=== PATIENT | female | born 1950 | race Caucasian/White ===

== ENCOUNTER → 2016-06-29 | Outpatient (CLI) | payer OTHER ==
[~2016-06-29] MED LIST: CYCL0.05; CYCL5TAB PO; OPTIRAY 320 IV PRN; PRM/45; PROP10TA7
--- NOTE | 2016-06-29 12:33 | DIAGNOSTIC IMAGING REPORT ---
CT SCAN OF THE ABDOMEN AND PELVIS WITH IV CONTRAST CLINICAL HISTORY: Right lower quadrant abdominal pain. Hematochezia. COMPARISON STUDY: No priors. TECHNIQUE: Following the IV administration of 119 cc of Optiray 320, CT scan of the abdomen and pelvis is performed from the lung bases to the proximal femora. Images are reviewed in the axial, sagittal, and coronal planes. IV contrast was administered without complication. Automated dose control exposure was utilized. CT DOSE: 797.96 mGycm FINDINGS: Lung bases: The heart is normal in size and without pericardial effusion. The lung bases are clear. Liver: The contrast-enhanced liver is normal in size and contour. The liver demonstrates diffusely diminished attenuation consistent with hepatic steatosis. Mild fatty sparing is seen adjacent to the gallbladder fossa. There is no intrahepatic biliary ductal dilatation. The hepatic veins and portal veins are patent. Gallbladder: Unremarkable. Spleen: Normal in size and attenuation. Pancreas: Unremarkable. Adrenal glands: Unremarkable. Kidneys: The contrast enhanced kidneys are normal in size and without hydronephrosis. The kidneys enhance symmetrically. Scattered subcentimeter cortical hypodensities likely represent cysts but are too small for definitive characterization. Abdominal vasculature: The abdominal aorta is normal in course and caliber noting mild atherosclerotic calcification. Bowel: The small bowel and colon are normal in course and caliber. There is moderate sigmoid diverticulosis. There is wall thickening with perisigmoidal inflammation and trace fluid consistent with acute sigmoid diverticulitis. There is no evidence of diverticular abscess. The appendix is well-visualized and normal. Peritoneum: There is no intraperitoneal free air or abdominal ascites. Lymphadenopathy: None. Pelvic viscera: Although decompressed, the bladder wall appears thickened. The uterus is surgically absent. No adnexal lesion is seen. The distal right gonadal vein appears thrombosed. Numerous calcified phleboliths are observed in the pelvis. Skeletal structures: The skeletal structures are osteopenic. There is mild lumbosacral spondylosis. No lytic or blastic lesions are seen. IMPRESSION: 1. Findings are consistent with acute sigmoid diverticulitis. No intraperitoneal free air is identified and there is no evidence of diverticular abscess. 2. Although decompressed, the bladder wall appears thickened. Correlation with clinical findings and urinalysis will be required. 3. 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 4. Additional findings as above. Electronically signed by: Stefan Melo M.D. 06/29/2016 12:31 PM Dictated Date/Time: 06/29/2016 12:26 PM
== END | disposition home or self-care (01) ==
LOC: C.CTS 10:03
PROVIDERS: ATTEND Nurse Practitioner
DX: R10.30 Lower abdominal pain, unspecified (principal); K92.1 Melena; I82.890 Acute embolism and thrombosis of other specified veins

== ENCOUNTER 2016-09-25 14:01 | Emergency (ER) | payer OTHER ==
[~2016-09-25] VITALS: Ht 162.6 cm; Wt 81.1 kg
[~2016-09-25 14:01] MED LIST changes: -CYCL5TAB PO; -OPTIRAY 320 IV PRN
[2016-09-25 14:07] VITALS: Ht 162.6 cm; Wt 81.1 kg
[2016-09-25 16:02] LABS: URINE APPEARANCE CLEAR (CLEAR); URINE BILIRUBIN NEG (NEG); URINE COLOR YELLOW; URINE EPITHELIAL CELL AUTO >30 /lpf (0-5); URINE NITRITE NEG (NEG); URINE PH 5.5 (4.5-7.5); URINE SPECIFIC GRAVITY 1.018 (1.000-1.030); UROBILINOGEN NEG (NEG)
[2016-09-25 16:03] LABS: MANUAL MICROSCOPIC REQUIRED? NO; REVIEW REQ? NO
--- NOTE | 2016-09-25 16:32 | EMERGENCY ROOM VISIT NOTE ---
ED Visit Note First contact with patient: 15:28 CHIEF COMPLAINT: Low back pain HISTORY OF PRESENT ILLNESS: This 66-year-old female patient presents to the emergency department, ambulatory, complaining of pain in the low back/pelvis which began approximately 2 hours prior to arrival. The patient states she was walking around outside, and watching the solar clips on her iPad. The patient states she fell onto the edge of a wooden step, landing on her left lower back. The patient called her PCP and spoke with a nurse, who advised her to come to the emergency Department in case of kidney injury. The patient has not taken anything for pain. The pain is worse with movement. The patient notes the pain as sharp and a 6/10. The patient denies any loss of control of their bowel or bladder functions. There has been no leg numbness or weakness, and no change in sensation. No nausea or vomiting or abdominal pain. No chest pain or shortness of breath. The patient has not had prior back injuries. No dysuria or increased urinary frequency. REVIEW OF SYSTEMS: A 10 system review of systems was performed with positives and pertinent negatives listed in the history of present illness. All other systems were reviewed and are negative. ALLERGIES: Prednisone, latex, ibuprofen, penicillin, Xylocaine, tetracycline MEDICATIONS: Losartan PMH: Hypertension SOCIAL HISTORY: The patient lives locally with family. She denies drug, alcohol , tobacco use. PHYSICAL EXAM: VITALS: Vitals are noted on the nurse's note and reviewed by myself. Vital signs stable. GENERAL: This is a 66-year-old female, in no acute distress, nondiaphoretic, well-developed well-nourished. SKIN: The skin was without rashes, erythema, edema, or bruising. Capillary refill less than 2 seconds. NECK: Supple without nuchal rigidity. No cervical spine tenderness. No paraspinous muscle tenderness. HEART: Regular rate and rhythm without murmurs gallops or rubs. LUNGS: Clear to auscultation bilaterally without wheezes, rales or rhonchi. ABDOMEN: Positive bowel sounds x 4. Normal tympanic percussion. Soft, nontender, without masses or organomegaly. Lopez sign negative. MUSCULOSKELETAL: There is tenderness over the left pelvis, overlying the PSIS. No muscle atrophy, erythema, or edema noted of the back. There is no tenderness over the lumbar spinous processes. There is no tenderness over the paraspinous muscles utterlyn. There is no tenderness over the thoracic spine or paraspinous muscles. There are no muscle spasms present. The patient is slow to move around with maximum tenderness with changing positions from sitting to lying down. THROAT: No sore throat, difficulty swallowing, or hoarseness. straight leg raise test. NEURO: Patient was alert and oriented to person place and time. Normal sensation to light and sharp touch. Deep tendon reflexes 2+ in the lower extremities. Dorsalis pedis pulse 2+ bilaterally. Strength 5/5 and equal in the bilateral lower extremities. RADIOLOGY: X-ray pelvis: FINDINGS: There is no fracture or dislocation. Soft tissues are unremarkable. No radiopaque foreign bodies. IMPRESSION: No fracture or dislocation within the pelvis or hips. EMERGENCY DEPARTMENT COURSE: She was seen and evaluated as above. A urinalysis was ordered, and did show mild occult blood. There was no gross blood in the urine. The urinalysis did appear to be contaminated. An x-ray of the pelvis was performed and negative for acute fracture or deformity. I discussed all findings with the patient. She was given a dose of Toradol 60 mg IM. The patient did report mild improvement in her symptoms. I offered pain medication , and the patient declines. The patient was discharged home in good condition. DIFFERENTIAL DIAGNOSIS: Pelvic fracture, contusion, lumbar strain, lumbar fracture, and others DIAGNOSIS: Contusion of the pelvis DISCHARGE INSTRUCTIONS AND TREATMENT: You have been treated in the Emergency Department for Back Pain. You have been prescribed Flexeril (cyclobenzaprine) 1-2 tabs orally, three times per day. Do NOT exceed 30 mg (6 tabs) per day. Take your first dose at bedtime as it can make you drowsy. Always take all medications as prescribed. For pain control, you can use the following [id number] medicines (if >12 yo): Naproxen (Alevel) may be used for fever or pain. Use 220-440mg every 8-12 hours as needed. Take with food. Avoid using more than 1000mg in a 24 hour period. Do not use 1000mg per day for more than three consecutive days without physician direction. Prolonged inappropriate use can lead to stomach upset or ulcers. (AND/OR) Acetaminophen(Tylenol) may be used for fever or pain. Use 1000mg every six hours as needed. Avoid using more than 3000mg in a 24 hour period. If this is an acute injury, ice can be applied to the area of pain for the first 3 days to help decrease pain and inflammation. After the first 3 days, a heating pad can be used over the area for continued soothing relief. You should schedule a follow-up appointment in 2-3 days with your Primary Care Provider for further evaluation and treatment of your back pain. You should have a repeat urinalysis completed regarding very small amounts of blood noted in your urine in the emergency department. This urinalysis should be to rule out ongoing bleeding. Return to the Emergency Department if your current symptoms worsen despite treatment course outlined above, or if you develop any of the following symptoms : intractable pain despite aforementioned treatment course, loss of control of your bowel or bladder, numbness or tingling in your groin, or development of a fever. Current/Historical Medications Scheduled Cyclobenzaprine Hcl (Flexeril), 1-2 TABS PO TID Miscellaneous Medications Cyclosporine Oph 0.05% (Restasis Oph 0.05%) Estrogens, Conjugated (Premarin) Propranolol (Inderal) Allergies Coded Allergies: Latex (Unverified Allergy, Mild, 03/12/09) Prednisone (Unverified Allergy, Mild, 03/12/09) Uncoded Allergies: TERACYCLINE (Allergy, Mild, 08/27/05) 1 (Allergy, Unknown, 03/20/02) IBUPROFEN PCN XYLOCAINE ?OTHERS (Allergy, Unknown, 03/20/02) Vital Signs Date Time Temp Pulse Resp B/P (MAP) Pulse Ox O2 Delivery O2 Flow Rate FiO2 09/25/16 17:15 36.6 71 18 151/88 95 09/25/16 17:10 71 18 151/88 95 Room Air 09/25/16 14:07 36.6 74 18 170/90 95 Room Air Laboratory Results Test 09/25/16 15:35 Urine Color YELLOW Urine Appearance CLEAR (CLEAR) Urine pH 5.5 (4.5-7.5) Urine Specific Widener 1.018 (1.000-1.030) Urine Protein NEG (NEG) Urine Glucose (UA) NEG (NEG) Urine Ketones NEG (NEG) Urine Occult Blood 1+ (NEG) Urine Nitrite NEG (NEG) Urine Bilirubin NEG (NEG) Urine Urobilinogen NEG (NEG) Urine Leukocyte Esterase LARGE (NEG) Urine WBC (Auto) 10-30 /hpf (0-5) Urine RBC (Auto) 0-4 /hpf (0-4) Urine Hyaline Casts (Auto) 1-5 /lpf (0-5) Urine Epithelial Cells (Auto) >30 /lpf (0-5) Urine Bacteria (Auto) NEG (NEG) Medications Administered Medications (Trade) Dose Ordered Sig/Buddy Route Start Time Stop Time Status Last Admin Dose Admin Ketorolac Tromethamine (Toradol Inj) 60 mg NOW STAT IM 09/25/16 16:50 09/25/16 16:52 DC 09/25/16 17:05 60 MG Departure Information Impression Primary Impression: Pelvic contusion Dispostion Home / Self-Care Condition GOOD Prescriptions Cyclobenzaprine Hcl (FLEXERIL) 5 Mg Tab 1-2 TABS PO TID, #20 TAB PRN Prov: Madeline Avila PA-C 09/25/16 Referrals Aida Dale DO (PCP) Patient Instructions ED Contusion Back, [facility] Additional Instructions You have been treated in the Emergency Department for Back Pain. You have been prescribed Flexeril (cyclobenzaprine) 1-2 tabs orally, three times per day. Do NOT exceed 30 mg (6 tabs) per day. Take your first dose at bedtime as it can make you drowsy. Always take all medications as prescribed. For pain control, you can use the following [id number] medicines (if >12 yo): Naproxen (Alevel) may be used for fever or pain. Use 220-440mg every 8-12 hours as needed. Take with food. Avoid using more than 1000mg in a 24 hour period. Do not use 1000mg per day for more than three consecutive days without physician direction. Prolonged inappropriate use can lead to stomach upset or ulcers. (AND/OR) Acetaminophen(Tylenol) may be used for fever or pain. Use 1000mg every six hours as needed. Avoid using more than 3000mg in a 24 hour period. If this is an acute injury, ice can be applied to the area of pain for the first 3 days to help decrease pain and inflammation. After the first 3 days, a heating pad can be used over the area for continued soothing relief. You should schedule a follow-up appointment in 2-3 days with your Primary Care Provider for further evaluation and treatment of your back pain. You should have a repeat urinalysis completed regarding very small amounts of blood noted in your urine in the emergency department. This urinalysis should be to rule out ongoing bleeding. Return to the Emergency Department if your current symptoms worsen despite treatment course outlined above, or if you develop any of the following symptoms : intractable pain despite aforementioned treatment course, loss of control of your bowel or bladder, numbness or tingling in your groin, or development of a fever. Problem Qualifiers Primary Impression: Pelvic contusion Encounter type: initial encounter Qualified Codes: S30.0XXA - Contusion of lower back and pelvis, initial encounter
--- NOTE | 2016-09-25 16:42 | DIAGNOSTIC IMAGING REPORT ---
PELVIS ONE VIEW HISTORY: left pelvic pain s/p fall (PSIS) COMPARISON: None. FINDINGS: There is no fracture or dislocation. Soft tissues are unremarkable. No radiopaque foreign bodies. IMPRESSION: No fracture or dislocation within the pelvis or hips. Electronically signed by: Erick Mendoza M.D. 09/25/2016 4:41 PM Dictated Date/Time: 09/25/2016 4:40 PM
[2016-09-25] MEDS ORDERED: KETOROLAC TROMETHAMINE 60 MG/2 ML VIAL IM STA (16:50)
[2016-09-25] MEDS ORDERED: CYCL5TAB PO (16:58)
[2016-09-25 17:15] VITALS: BP 151/88; PULSE 71; TEMP 36.6; O2SAT 95
== END 2016-09-25 17:16 | disposition home or self-care (01) ==
LOC: C.EDB 14:02 → C.EDA 17:16
DX: S30.0XXA Contusion of lower back and pelvis, initial encounter (principal); W22.8XXA Striking against or struck by other objects, initial encounter; I10 Essential (primary) hypertension; Z79.899 Other long term (current) drug therapy; Z88.0 Allergy status to penicillin; Z88.6 Allergy status to analgesic agent; Z88.8 Allergy status to other drugs, medicaments and biological substances; Z91.040 Latex allergy status

== ENCOUNTER → 2016-11-21 | Outpatient (CLI) | payer OTHER ==
[~2016-11-21] VITALS: Ht 162.6 cm; Wt 80.1 kg
[2016-11-21 12:41] VITALS: BP 138/83; PULSE 78; Ht 162.6 cm; Wt 80.1 kg
== END | disposition home or self-care (01) ==
LOC: C.NEUR 12:00
PROVIDERS: ATTEND Internal Medicine Pulmonary Disease
DX: R06.83 Snoring (principal); R53.83 Other fatigue

== ENCOUNTER → 2016-12-18 | Outpatient (CLI) | payer OTHER ==
--- NOTE | 2016-12-19 06:26 | PAP/PSG TECHNICIAN REPORT ---
[facility] Genetic Counselor Polysomnogram Report Study name: None Report date: 12/19/2016 Study date: 12/18/2016 Referring Physician: Oksana Reynolds PA-C Name: MARGRET DANIEL Interpreting Physician: Michael Lai M.D. Date of : 1950 Genetic Counselor: Alana Rico RPS. Sex: Female Age: 66 StudyType: PSG Weight: 176.6 lbs Height: 66 years, Height 5' 4" Neck Circum:13inches BMI: 30.31 Medications: Glucosamine 500mg, Vit B-12 1000mcg, Vit D 1000unit, Zocor 20mg Patient History Study started on room air with no ETC02 monitoring in room #8.66 yr old female here [facility] for a diagnostic psg. She complains of snoring and fatigue. She was just diagnosed with colitis and a UTI but [facility] Today was her first day of an antibiotic. She has a history of HTN, dyslipidemia and migraine headaches. Her sister has PAULINE. Her ESS=10/24. Her neck circ=13inches. Parameters Monitored NPSG: E1-M2, E2-M1, Fp1-M2, Fp2-M1, F3-M2, F4-M2, F4-M1, C3-M2, C4-M2, C4-M1, O1-M2, O2-M2, O2-M1, T3-M2, T4-M1, P3-M2, P4-M1, CHIN1, CHIN2, HR, EKG, Legs, PFLOW, SNOR, FLOW, CFLOW, Tidal Volume, THOR, ABDO, SpO2, PLTH, CPRESS, ETCO2 Wave, ETCO2, pH Sleep Architecture Sleep Stages Time at Lights Off 10:44:59 PM STAGES Time (min.) TST (%) Time at Lights On 5:25:59 AM Wake 88.0 -- Total Recording Time (TRT) 400.50 min. N1 25.0 8 Total Sleep Period (TSP) 388.5 min. N2 145.0 46 Total Sleep Time (TST) 312.5min. N3 61.0 20 Awake Time 88.0 min. REM 81.5 26 Wake after Sleep Onset 76.0 min. Sleep Efficiency (SE) 78 % Sleep Onset Latency (WINNIE) 12.5 min. Number of Stage 1 Shifts None Awakenings 20 Stage Changes 82 Number of REM periods 7 REM 81.5 26 REM Latency 201.0 min. NREM 231.0 74 Body Position Analysis Supine Right Left Side Prone Vertical Total Sleep Time (min.) 102.2 212.0 36.5 248.50 0.0 0.0 Total Sleep Time (%) 20% 68% 12% 80 0% N/A% Total Sleep Time REM (min.) 0.0 81.5 0.0 None 0.0 0.0 Total Sleep Time NREM (min.) 64.0 130.5 36.5 None 0.0 0.0 Intermittent Wake (min.) 38.2 27.7 22.1 None 0.0 0.0 Total Sleep Period (%) 26% None None None None None Arousals Myoclonus (PLM) * Events Count Index Events Count Index Spontaneous 37 7 Events Awake (PLMW) 61 41.6 Respiratory 5 1.0 Events Asleep w/ Arousal (PLMA) 10 1.9 PLM 10 2 Events Asleep w/o Arousal (PLMS) 32 6.1 Snoring 46 9 Total Asleep 42 8.1 Total 97 19 Total 103 15 Respiratory Analysis * CA OA MA CH H RERA Total Count 0 1 0 0 8 0 9 Index 0.0 0.2 0.0 0 1.5 0 1.7 Mean Duration 0.0 18.7 0.0 0.00 19.4 0.0 19.3 Longest Duration 0.0 18.7 0.0 0.00 0.0 0.0 27.2 Respiratory Event Summary Total Supine ~Supine Right Left Prone REM NREM Apneas Count 1 1 0 0 0 N/A 0 1 Index 0.2 1 0 0.0 0.0 N/A 0 0 Hypopneas (4% Desat) Count 8 8 0 0 0 N/A 0 8 Index 1.5 7.5 0 0.0 0.0 N/A 0.0 2.1 Apneas & All Hypopneas Count 9 9 0 0 0 N/A 0 9 Index 1.7 8 0 0 0 N/A 0.0 2.3 Respiratory Events (Family Service Assistant+All Hyp+RERA) Count 9 9 0 0 0 N/A 0 9 Index 1.7 8 0 0.0 0.0 N/A 0.0 2.3 Respiratory Related Arousal Count 5 9 0 0 0 N/A 0 5 Index 1.0 5 0 0 0 N/A 0 1 Snoring Analysis Supine Right Left Prone REM NREM Total Snore duration 5.5 min Snores count 91 13 32 N/A 5 131 136 Snore mean duration 2.4 Sec Snores index 85 4 53 N/A 3.7 34.0 26.1 TST with snoring (%) 1.8% Desaturation Event Summary: Minimum %SpO2 Event Count Mean/Min/Max Duration(sec.) Desaturation Index % Time In Bed > 90 13 25.8 / 9.3 / 51.0 3.3 60.9 86 - 90 1 14.8 / 14.8 / 14.8 0.4 38.9 81 - 85 0 N/A 0.0 0.1 76 - 80 1 12.0 / 12.0 / 12.0 293.9 0.1 71 - 75 0 N/A 0.0 0.0 66 - 70 0 N/A 0.0 0.0 61 - 65 0 N/A 0.0 0.0 56 - 60 0 N/A 0.0 0.0 51 - 55 0 N/A 0.0 0.0 < 50 0 N/A 0.0 0.0 Total REM NREM Awake <50% 0.0 min. 0.0 min. 0.0 min. 0.0 min. 51 - 60% 0.0 min. 0.0 min. 0.0 min. 0.0 min. 61 - 70% 0.0 min. 0.0 min. 0.0 min. 0.0 min. 71 - 80% 0.2 min. 0.0 min. 0.0 min. 0.2 min. 81 - 90% 153.3 min. 32.1 min. 99.7 min. 21.5 min. 91 - 100% 239.4 min. 49.4 min. 131.1 min. 58.9 min. Average 91 91 91 92 Minimum SpO2 78 87 80 78 Desaturation Event Index 2.1 0.0 1.0 6.8 # Desat. Events below 89% 4 N/A N/A 4 Time(%) with Saturation below 89% 5.2 1.9 1.6 1.7 Time(min.) with Saturation below 89% 20.6 7.6 6.4 6.6 Time (mins) REM (mins) NREM (mins) % of TST SpO2 Below 90% 3 N/A N3 25.2 SpO2 Below 88% 0 0 0 0 Heart Rate Analysis Min (bpm) Max (bpm) Average (bpm) Awake 44 127 54 NREM 43 91 52 REM 50 78 58 Overall 43 91 53 Supplemental O2 Values Minimum O2 level: None Value Start Time End Time Genetic Counselor Comments Mrs. Daniel slept in the right, left and supine positions. No cardiac arrhythmia noted. Some leg movements were noted. No bruxism noted. Snoring was noted and scored as a 1 on a scale of 1 through 5. (0=no snoring, 5=snoring loud enough to be heard through a closed door or down the [address] way) She did have numerous snore arousals and would turn her head from side to side after each arousal. This occurred primarily during the beginning of the study. She awoke to use the restroom 1 time during the night. She stated that she did not sleep as well as when at home. The final report will be interpreted and signed by a sleep physician. The completed physician report will then be placed in the patient medical record. Therapy (cm H2O) 0 TIB (min.) 400.5 TST (min.) 312.5 Sleep Onset (min.) 12.5 REM Onset From Sleep (min.) 201.0 Sleep Efficiency % 78 Wakefulness (%) 22 Wakefulness (min.) 88.0 NREM 1 (%) 8 NREM 1 (min.) 25.0 NREM 2 (%) 46 NREM 2 (min.) 145.0 NREM 3 (%) 20 NREM 3 (min.) 61.0 REM (%) 26 REM (min.) 81.5 # Arousals 97 Arousal Index 19 # Snore 136 Snore Index 26.1 AHI 1.7 AHI Supine 8 AHI Non-Supine 0 NREM AHI 2.3 REM AHI 0.0 RDI 1.7 # Obstructive Apnea 1 # Central Apnea 0 # Mixed Apnea 0 # Hypopneas 8 RERAs 0 Total Respiratory Events 9 Time Below SpO2 89% (min.) 14.0 Mean NREM SpO2 (%) 91 Mean REM SpO2 (%) 91 Mean Sleep SpO2 (%) 91 Min NREM SpO2 (%) 80 Min REM SpO2 (%) 87 Position Supine (min.) 102.2 Position Non-supine (min.) 248.5 LM Index Sleep 8.1 LM Index NREM 6.8 LM Index REM 11.8 Mean Heart Rate (bpm) 53 Min Heart Rate (bpm) 43
--- NOTE | 2016-12-21 14:03 | POLYSOMNOGRAPH REPORT ---
CLINICAL DATA: A 66-year-old female with BMI of 30.3 referred by Oksana Reynolds, Dr. Dale and Dr. Haider with snoring, fatigue and a family history of sleep apnea along with hypertension and migraine headaches. She was recently diagnosed with colitis and UTI but decided to proceed on with her sleep study. She was on antibiotics. Her Keiser sleepiness score is 10/ 24. SLEEP ARCHITECTURE: Total sleep period was 388.5 minutes. Total sleep time was 312.5 minutes divided between 231 minutes of non-REM sleep and 81.5 minutes of REM sleep. Sleep onset latency was 12.5 minutes. REM latency was delayed at 201 minutes. Sleep efficiency was 78%. Wake after sleep onset was 76 minutes. Sleep consisted of stage N1 8%, stage N2 46%, stage N3 20%, and REM 26%. AROUSAL DATA: Ninety-seven arousals were recorded for an index of 19 per hour. Thirty-seven were spontaneous. Forty-six were due to snoring. PLM DATA: Forty-two limb movements during sleep were noted for an index of 8.1 per hour with arousal index of 1.9 per hour. RESPIRATORY DATA: There was no evidence of clinically significant sleep apnea seen. The AHI was 1.7. There was 1 obstructive apneic episode, 18.7 seconds in duration. There were 8 hypopneic episodes with a mean duration of 19.4 seconds. OXIMETRY DATA: No significant hypoxemia was seen. Oxygen davey was 88%. Mean saturation was 91%. EKG: Heart rates ranged from 43-91 beats per minute. No arrhythmias noted. COPY WORKER'S COMMENTS: The patient slept in the right, left, and supine positions. Snoring was moderate, rated 1 on a scale of 1-5. She had numerous snoring arousals, and would turn her head from side to side after each arousal primarily at the beginning of the study. IMPRESSION: No evidence of clinically significant sleep apnea/hypopnea or nocturnal hypoxemia to explain this patient's symptoms. She did have frequent snoring arousals. RECOMMENDATIONS: The patient may benefit from ENT evaluation or use of a nasal steroid for snoring. Weight loss may be of benefit. There was nothing to suggest that CPAP is needed. [facility]
== END | disposition home or self-care (01) ==
LOC: C.NEUR 21:00
PROVIDERS: ATTEND Physician Assistant Medical
DX: R53.83 Other fatigue (principal); R06.83 Snoring

== ENCOUNTER → 2017-01-16 | Outpatient (CLI) | payer OTHER ==
[~2017-01-16] VITALS: Ht 162.6 cm; Wt 75.7 kg
[2017-01-16 13:36] VITALS: BP 138/78; PULSE 70; Ht 162.6 cm; Wt 75.7 kg
== END | disposition home or self-care (01) ==
LOC: C.NEUR 12:10
PROVIDERS: ATTEND Physician Assistant Medical
DX: R53.83 Other fatigue (principal); R06.83 Snoring

== ENCOUNTER 2019-09-04 18:12 | Inpatient (IN) ==
--- OUTSIDE RECORDS SUMMARY | 2019-09-04 18:14 | External Medical Summary | Continuity of Care Document ---
:1950 Author Name Cindy Fowler, Provider Address Unavailable Unavailable , Care Team Providers Name Role Phone Oksana Reynolds PA-C Unavailable [email or web address] Unavailable Unavailable Unavailable Unavailable Unavailable Assessments Assessed Problems:SnoringFatigue Problems Snoring (786.09) (R06.83) Fatigue (780.79) (R53.83) Arrhythmia (427.9) (I49.9) Hypovolemia (276.52) (E86.1) Dizziness (780.4) (R42) Allergies and Adverse Reactions STANLEY Inhibitors (Allergy) HydroDIURIL (Allergy) ibuprofen (Allergy) Imidazole Antifungals (Allergy) Latex Gloves (Allergy) orphenadrine (Allergy) Penicillins (Allergy) predniSONE (Allergy) Tetracyclines (Allergy) Vicodin TABS (Allergy) Medications Glucosamine 500 MG Oral Capsule; TAKE DIRECTED. Start: 15-Sep-2016 Refills: 0 Zocor 20 MG Oral Tablet; TAKE 1 TABLET DAILY. Start: 15-Sep-2016 Refills: 0 Vitamin B-12 1000 MCG Oral Tablet; TAKE 1 TABLET DAILY DI RECTED. Start: 15-Sep-2016 Refills: 0 Vitamin D 1000 UNIT TABS; TAKE DIRECTED. Start: 15-Sep-2016 Refills: 0 Losartan Potassium 100 MG Oral Tablet; TAKE 1 TABLET DAILY. Start: 21-Nov-2016 Refills: 0 30 Tablet Bottle Probiotic Oral Tablet Delayed Release; as directed Start: 16-Jan-2017 Refills: 0 Cranberry Extract 200 MG Oral Capsule; as directed Start: 16-Jan-2017 Refills: 0 Procedures History of hysterectomy Status: Complete d History of colonoscopy Status: Completed Immunizations Immunizations not documented Family History Unknown Family Member No significant family history (V49.89) Status: Active C omments: Family History (Z78.9) Interventions Discussion/SummaryPt. is a 66 y.o. female with a medical History significant for HTN, dyslipidemia, and migraine headaches. She was referred by Dr. Haider d/t c/o snoring and fatigue. Her FMHx is significant for PAULINE inher sister who is on treatment with CPAP. An in-lab sleep study was ordered to r/o sleep apnea and di d not show clinically significant sleep apnea/hypopnea, or nocturnal hypoxemia. Increased arousals were noted with an index of 19/hour and 46 were d/t snoring. Further evaluation with ENT has been recommended and fortunately she already has a pending appointment on 01/22/2017. I did discuss a trial ofa steroid nasal spray which she is not interested in as she has had side effects associated with steroid therapy in the past. In the interim since her last appointment her energy level has improved andshe has lost 10 pounds and continues to work on weight loss. Follow-up in our office will be as needed. Plan of Treatment Planned Observations Planned Goals not documented Results No Known Results Results not documented Encounters Appointment; Oksana Reynolds PA-C 16-Jan-2017 12:20 Encounter Diagnosis: Problem not documented
[2019-09-04] MEDS ORDERED: metroNIDAZOLE 500 MG TAB PO STA (19:12)
[2019-09-04] MEDS ORDERED: CIPROFLOXACIN / D5W 400 MG/200 ML BAG IV STA (19:12)
--- NOTE | 2019-09-04 19:29 | Emergency Department Note ---
Impression & Plan Dog bite of left lower leg with infection ED Provider Note Provider: Chidi Muniz MD DATE OF SERVICE: 09/04/2019 CHIEF COMPLAINT: Infected dog bite HISTORY OF PRESENT ILLNESS: Patient is a 68-year-old female presenting today via private vehicle complaining of an infected dog bite of her left leg. Patient states new neighbors moved in with a dog that was really from [place] "with a history ". Evidently was in their backyard yesterday and got bit by the dog. Reports that this is a beagle. Dog lives with them. Patient reports some slight chills yesterday and a temperature of 100 Fahrenheit today. There is redness and swelling around the bites on her lower left leg. Initially was bleeding that was stopped. Still with some clear serous drainage at times. Patient went to [facility] and got a tetanus shot today. Patient states that she took an old Bactrim earlier today. Patient states she had only recommended in 1 report the dog but now that it looks like it is infected came in for further evaluation. Took some aspirin for pain. Hurts with walking on it. No other trauma or recent travel reported. Patient reports allergies to tetracycline and penicillinhives. REVIEW OF SYSTEMS: A total of 6 review of systems was obtained and negative except as stated above in the HPI. PAST MEDICAL HISTORY: As noted above MEDICATIONS: Reviewed medication list SOCIAL HISTORY: Lives at home with PHYSICAL EXAM: GENERAL: alert and oriented in no acute distress on stretcher Head: normocephalic and atraumatic EYES: No injection, discharge or icterus. ENT: Mucous membranes pink and moist. LUNGS: Airway patent. No retractions. HEART: Regular rate and rhythm. SKIN: Acyanotic, warm, dry, leg erythema as below. EXTREMITIES: Without swelling, tenderness or deformity except for a not quite circumferential area of erythema with swelling around multiple superficial punctate bite wounds of the left lower leg predominantly laterally with a general dimension of 12 cm x 6 cm. NO crepitus appreciated. NEUROLOGICAL: No focal deficits. No aphasia. No facial droop or slurred speech. Normal strength and tone in the extremities. Sensation to gross touch normal. Patient's hypertension was referred to the hospitalist Patient's laboratory studies reviewed. Differential includes Foreign body, fracture, dislocation, joint compromise, infection, soft tissue injury, tendon injury, vascular compromise, compartment syndrome, as well as other pathologies. IMPRESSION/MEDICAL DECISION MAKING: Patient reports subjective fever and chills earlier with pain and some discharge from a dog bite about 24 hours ago. Pain with walking but I doubt fracture. No crepitus. Patient has erythema and swelling concerning for infection. Mild leukocytosis noted on labs. Tetanus updated today. This is a neighbors animal I doubt this represents a rabies bite and no believe we need rabies prophylaxis at this time. Patient has allergies to tetracyclines and penicillinshives that she reports. Given this discussed with her pharmacist and given her reaction history proceed with a dose of ciprofloxacin and Flagyl. The area was outlined and a surface culture from the wound was obtained. The area was cleaned with saline and Betadine and lightly bandaged. Do not feel imaging additionally is needed at this time and I doubt DVT. Neurologically intact LLE. No evidence of ischemic left leg. No evidence of necrotizing fasciitis. Fairly superficial wounds. No need for acute closure at this time. Will discuss with the hospitalist further observation as an inpatient given the infected dog bite wound. DIAGNOSIS: Infected left leg dog bite wound DISPOSITION: Hospitalist will evaluate for observation. Patient was agreeable with this plan. Past Med/Surg History Social History Smoking Status: Never smoker Preferred Language: Uruguayan Feels Safe at Home: Yes Allergies Allergies Allergy/AdvReac Type Severity Reaction Status Date / Time acetaminophen [From Vicodin] Allergy Severe HALLUCINATIONS, Verified 09/04/19 19:53 VOMITING hydrocodone [From Vicodin] Allergy Severe HALLUCINATIONS, Verified 09/04/19 19:53 VOMITING Penicillins Allergy Severe ARI HIVES Verified 09/04/19 19:53 prednisone Allergy Severe TROUBLE Verified 09/04/19 19:53 BREATHING Tetracyclines Allergy Severe ARI HIVES Verified 09/04/19 19:53 STANLEY Inhibitors Allergy Intermediate COUGH--FELT Verified 09/04/19 19:53 LIKE ASTMA ATTACK STARTING Imidazole Alkylating Agents Allergy Intermediate Rash Verified 09/04/19 19:53 latex Allergy Intermediate RASH, Verified 09/04/19 19:53 BLISTERS hydrochlorothiazide Allergy Unknown CAN'T Verified 09/04/19 19:53 [From HydroDiuril] REMEMBER orphenadrine Allergy Unknown CAN'T Verified 09/04/19 19:53 REMEMBER STRONG SCENTS Allergy Severe Wheezing Uncoded 09/04/19 19:53 HAND SANITIZIER Allergy Intermediate CONGESTION Uncoded 09/04/19 19:58 SUNCREENS Allergy Intermediate FACE SWELLS Uncoded 09/04/19 19:53 Home Meds Home Medications Medication Instructions Recorded Confirmed Lactobacillus acidophilus 0 cell PO QPM 09/04/19 09/04/19 [Probiotic] cholecalciferol (vitamin D3) 0 mcg PO QPM 09/04/19 09/04/19 [Vitamin D3] clotrimazole 1 applic TOPICAL DIRECTED PRN 09/04/19 09/04/19 glucosamine sulfate [Glucosamine] 500 mg PO QPM 09/04/19 09/04/19 losartan 100 mg PO QPM 09/04/19 09/04/19 mupirocin calcium 1 applic TOPICAL DIRECTED PRN 09/04/19 09/04/19 omeprazole 20 mg PO QPM 09/04/19 09/04/19 simvastatin 20 mg PO QPM 09/04/19 09/04/19 vitamin B complex 1 tab PO QPM 09/04/19 09/04/19 Results & Data (ED) Vital Signs Vital Signs - 24 hr 09/04/19 18:24 09/04/19 19:47 Temperature 37.8 C H Temperature Source Oral Pulse Rate 86 Pulse Rate [Finger] 67 Respiratory Rate 18 20 Respiratory Effort / Characteristics Non-Labored Respiratory Depth Normal Blood Pressure 158/82 H Blood Pressure [Right Arm] 155/85 H Blood Pressure Mean 107 Blood Pressure Mean [Right Arm] 108 Pulse Oximetry 96 99 Oxygen Delivery Method Room Air Room Air Sepsis Recent Fever Within 48 Hours Yes Sepsis New/Unexplained Change in Mental Status No Sepsis Action Taken by Nursing No Action Required Laboratory Data Result diagrams: 09/04/19 19:35 09/04/19 19:35 Lab Results 09/04/19 09/04/19 Range/Units 19:35 19:35 WBC 12.13 H (4.8-10.8) K/uL RBC 4.69 (4.2-5.4) M/uL Hgb 14.2 (12.0-16.0) g/dL Hct 42.3 (37-47) % MCV 90.2 (80-100) fL MCH 30.3 (25-34) pg MCHC 33.6 (32-36) g/dL RDW Std Deviation 44.4 (36.4-46.3) fL RDW Coeff of Danette 13.5 (11.5-14.5) % Plt Count 238 (130-400) K/uL MPV 9.6 (7.4-10.4) fL Immature Gran % (Auto) 0.2 % Neut % (Auto) 80.3 % Lymph % (Auto) 12.2 % [place] % (Auto) 6.8 % Eos % (Auto) 0.2 % Baso % (Auto) 0.3 % Neut # (Auto) 9.73 H (1.4-6.5) K/uL Lymph # (Auto) 1.48 (1.2-3.4) K/uL [place] # (Auto) 0.83 H (0.11-0.59) K/uL Eos # (Auto) 0.03 (0-0.5) K/uL Baso # (Auto) 0.04 (0-0.2) K/uL Immature Gran # (Auto) 0.02 (0.00-0.02) K/uL Sodium 141 (136-145) mmol/L Potassium 3.6 (3.5-5.1) mmol/L Chloride 110 H (98-107) mmol/L Carbon Dioxide 27 (21-32) mmol/L Anion Gap 4.0 (3-11) BUN 17 (7-18) mg/dl Creatinine 1.13 (0.6-1.2) mg/dl Est Cr Clr Drug Dosing 44.9 ml/min Est GFR ( Amer) 57.4 Est GFR (Non-Af Amer) 49.6 BUN/Creatinine Ratio 15.3 (10-20) Glucose 112 H (70-99) mg/dl Calcium 9.2 (8.5-10.1) mg/dl Magnesium 2.2 (1.8-2.4) mg/dl C-Reactive Protein 3.31 H (0-0.29) mg/dl Administered Medications Ciprofloxacin (Cipro / D5w) 400 mg in 200 mls @ 100 mls/hr IV NOW STA; Protocol Stop: 09/04/19 21:11 Last Admin: 09/04/19 19:43 Dose: 100 mls/hr Documented by: [id number] Discontinued Medications Metronidazole (Flagyl) 500 mg PO NOW STA Stop: 09/04/19 19:13 Last Admin: 09/04/19 19:43 Dose: 500 mg Documented by: [id number] Discharge Plan Visit Data Chief Complaint: Animal Bite Stated Complaint: INFECTED DOG BITE ED Provider: Chidi Muniz Discharge Problem: Dog bite of left lower leg with infection Patient Disposition: Being Evaluated by Hospitalist Condition: Good Prescriptions Prescriptions: No Action simvastatin 20 mg tablet 20 mg PO QPM RF: 0 mupirocin calcium 2 % cream 1 applic TOPICAL DIRECTED PRN (Reason: Skin Irritation) RF: 0 omeprazole 20 mg capsule,delayed release(DR/EC) 20 mg PO QPM RF: 0 losartan 100 mg tablet 100 mg PO QPM RF: 0 clotrimazole 1 % Cream 1 applic TOPICAL DIRECTED PRN (Reason: NEEDED) RF: 0 glucosamine sulfate [Glucosamine] 500 mg Tablet 500 mg PO QPM RF: 0 vitamin B complex Tablet 1 tab PO QPM RF: 0 cholecalciferol (vitamin D3) [Vitamin D3] 25 mcg (1,000 unit) Capsule 0 mcg PO QPM RF: 0 Probiotic 10 billion cell Capsule 0 cell PO QPM RF: 0 Referrals Referrals: Aida Dale DO [Primary Care Provider] - Discharge Problem: Dog bite of left lower leg with infection Qualifiers: Encounter type: initial encounter Qualified Code(s): S81.852A - Open bite, left lower leg, initial encounter
[2019-09-04 19:46] LABS: Basophils # (auto) 0.04 K/uL (0-0.2); Basophils % (auto) 0.3 %; Eosinophils # (auto) 0.03 K/uL (0-0.5); Eosinophils % (auto) 0.2 %; Hematocrit (blood only) 42.3 % (37-47); Hemoglobin 14.2 g/dL (12.0-16.0); Immature Granulocytes # (auto) 0.02 K/uL (0.00-0.02); Immature Granulocytes % (auto) 0.2 %; Lymphocytes # (auto) 1.48 K/uL (1.2-3.4); Lymphocytes % (auto) 12.2 %; Mean Corpuscular Hemoglobin 30.3 pg (25-34); Mean Corpuscular Hgb Conc 33.6 g/dL (32-36); Mean Corpuscular Volume 90.2 fL (80-100); Mean Platelet Volume 9.6 fL (7.4-10.4); Monocytes # (auto) 0.83 K/uL (0.11-0.59); Monocytes % (auto) 6.8 %; Neutrophils # (auto) 9.73 K/uL (1.4-6.5); Neutrophils % (auto) 80.3 %; Platelet Count 238 K/uL (130-400); RDW Coefficient of Variation 13.5 % (11.5-14.5); RDW Standard Deviation 44.4 fL (36.4-46.3); Red Blood Count 4.69 M/uL (4.2-5.4); White Blood Count 12.13 K/uL (4.8-10.8)
[2019-09-04] MEDS ORDERED: POLYETHYLENE (MIRALAX) 17 GM PACK PO PRN (19:51)
[2019-09-04] MEDS ORDERED: ACETAMINOPHEN 325 MG TAB PO PRN (19:51)
[2019-09-04 20:03] LABS: BUN Creatinine Ratio 15.3 (10-20); C Reactive Protein 3.31 mg/dl (0-0.29); Calcium 9.2 mg/dl (8.5-10.1); Creatinine Clr Calc Pharmacy 44.9 ml/min; Est GFR (African American) 57.4; Est GFR (Non-African American) 49.6; Magnesium 2.2 mg/dl (1.8-2.4); Potassium 3.6 mmol/L (3.5-5.1)
--- NOTE | 2019-09-04 20:52 | History & Physical Report ---
Date of Service September 04, 2019 Assessment & Plan (1) Dog bite of left lower leg with infection: Patient presents with cellulitis of left lower extremity, after dog bite yesterday. Patient reports that dog was vaccinated for rabies. Patient had tetanus vaccination yesterday, presented to urgent care, and then was sent to ED due to temperature of 100 Fahrenheit. White blood cell count mildly elevated, at 12,000, CRP elevated at above 3 Patient was started on Cipro and Flagyl in the ED today, given her allergies to tetracyclines and penicillin. We will continue Cipro and Flagyl, and will closely monitor. Currently patient is hemodynamically stable. Wound culture obtained in ED, follow-up Wound nurse consulted Erythema demarcated in ED HTN For now will not restart losartan, if blood pressure is still okay tomorrow, patient can restart her medication. (2) Dyslipidemia: Continue home simvastatin GERD Continue omeprazole DVT ppx Heparin subcu CODE: Full Dispo: Home after improvement of cellulitis History of Present Illness Chief Complaint: Dog bite infection Primary Care Provider: Aida Dale DO Mrs. Daniel is a 68-year-old female with history of dyslipidemia, hypertension, who presents to ED with left lower extremity dog bite infection. Patient states that she was bit by a neighbor's dog yesterday, after that she presented to urgent care center and was advised to come to emergency room because her temperature was 100 Fahrenheit. She was not started on antibiotic at that time however she did receive tetanus shot. She also took old Bactrim that she found at home. She reports neighbor's dog was vaccinated for rabies. She feels that her leg is getting more red and swollen and more painful. She did have some subjective fevers and chills at home, currently she describes chills. Temperature currently in ED 37.8 Celsius. She reports allergies to tetracyclines and penicillin, ED provider discussed with pharmacy, started patient on ciprofloxacin and Flagyl. Erythema was demarcated in the ED as well. White blood count mildly elevated at 12,000, CRP elevated at above 3. Patient remains hemodynamically stable. Allergies Allergy/AdvReac Type Severity Reaction Status Date / Time acetaminophen [From Vicodin] Allergy Severe HALLUCINATIONS, Verified 09/04/19 19:53 VOMITING hydrocodone [From Vicodin] Allergy Severe HALLUCINATIONS, Verified 09/04/19 19:53 VOMITING Penicillins Allergy Severe ARI HIVES Verified 09/04/19 19:53 prednisone Allergy Severe TROUBLE Verified 09/04/19 19:53 BREATHING Tetracyclines Allergy Severe ARI HIVES Verified 09/04/19 19:53 STANLEY Inhibitors Allergy Intermediate COUGH--FELT Verified 09/04/19 19:53 LIKE ASTMA ATTACK STARTING Imidazole Alkylating Agents Allergy Intermediate Rash Verified 09/04/19 19:53 latex Allergy Intermediate RASH, Verified 09/04/19 19:53 BLISTERS hydrochlorothiazide Allergy Unknown CAN'T Verified 09/04/19 19:53 [From HydroDiuril] REMEMBER orphenadrine Allergy Unknown CAN'T Verified 09/04/19 19:53 REMEMBER STRONG SCENTS Allergy Severe Wheezing Uncoded 09/04/19 19:53 HAND SANITIZIER Allergy Intermediate CONGESTION Uncoded 09/04/19 19:58 SUNCREENS Allergy Intermediate FACE SWELLS Uncoded 09/04/19 19:53 Home Medications Home Medications Medication Instructions Recorded Confirmed Type Lactobacillus acidophilus 0 cell PO QPM 09/04/19 09/04/19 History [Probiotic] cholecalciferol (vitamin D3) 0 mcg PO QPM 09/04/19 09/04/19 History [Vitamin D3] clotrimazole 1 applic TOPICAL DIRECTED PRN 09/04/19 09/04/19 History glucosamine sulfate [Glucosamine] 500 mg PO QPM 09/04/19 09/04/19 History losartan 100 mg PO QPM 09/04/19 09/04/19 History mupirocin calcium 1 applic TOPICAL DIRECTED PRN 09/04/19 09/04/19 History omeprazole 20 mg PO QPM 09/04/19 09/04/19 History simvastatin 20 mg PO QPM 09/04/19 09/04/19 History vitamin B complex 1 tab PO QPM 09/04/19 09/04/19 History Past Med/Surg History Medical History (Updated 09/04/19 @ 21:20 by Dereje Saha MD) Abnormal colonoscopy Chronic allergic rhinitis Dyslipidemia Hearing loss, bilateral Rheumatic fever Tubular adenoma of colon Surgical History (Updated 09/04/19 @ 21:20 by Dereje Saha MD) H/O abdominal hysterectomy H/O cataract removal with insertion of prosthetic lens H/O dilation and curettage History of esophagogastroduodenoscopy (EGD) Family History (Updated 09/04/19 @ 21:24 by Dereje Saha MD) Mother Cancer lung Sister Diabetes Asthma Father Cancer stomach Social History Smoking Status: Former smoker Hx Alcohol Use: No Hx Substance Use: No Preferred Language: [employer] Work[employer] Required: No Beliefs That Will Affect Care: None Current Living Situation: Spouse Other Information That Helps Us Care for You: No Feels Safe at Home: Yes Safety Concerns: Feels Safe At This Time Review of Systems Review of Systems: All systems reviewed & are unremarkable except as noted in HPI & below Constitutional: + chills; no fever Eyes: no problem reported Ear, Nose, Mouth, Throat: no problem reported Respiratory: no cough and no dyspnea Cardiovascular: no chest pain and no palpitations Gastrointestinal: no abdominal pain, no nausea and no vomiting Genitourinary: no dysuria Musculoskeletal: L ankle pain and swelling d/t dog bite Integumentary: no problem reported Neurologic: no problem reported Psychiatric: no problem reported Endocrine: no problem reported Hematologic / Lymphatic: no problem reported Allergy / Immunological: Chronic rhinitis Physical Exam Physical Exam: Elderly female, sitting up in the bed, in no acute distress Constitutional: WD/WN, vitals as above no acute distress and not ill appearing Eyes: PERRL, conjunctivae normal, anicteric sclerae EOM intact bilaterally ENMT: external ear and nose normal, oropharynx normal Neck: trachea midline Respiratory: normal respiratory effort, lungs clear to auscultation no cough Auscultation: no crackles, no rhonchi and no wheezes Cardiovascular: RRR, no murmur, no edema Chest (Breasts): Chest: normal inspection of chest Gastrointestinal (Abdomen): Inspection/Auscultation: abdomen normal to inspect ion and normal bowel sounds; abdomen not distended Percussion/Palpation: abdomen soft; abdomen nontender, no guarding and abdomen not rigid Musculoskeletal: Head/Neck/Chest: normocephalic, head atraumatic and neck supple Skin: + lesion (Left ankle lesion, erythema) Neurologic: PERRL, EOMI, accommodation nl, no face palsy, no dysarthria moves all extremities; no focal motor deficits Speech / Cognition: normal speech Motor/Sensory: no tremor Psychiatric: A+Ox3, euthymic affect Speech: normal rate/rhythm/volume of speech Results & Data Results & Data ([facility]) Vital Signs (Past 12 Hours) Vital Signs Temp Pulse Pulse Resp BP BP Pulse Ox 09/04/19 19:47 67 20 155/85 H 99 09/04/19 18:24 37.8 C H 86 18 158/82 H 96 Laboratory Results 09/04/19 09/04/19 09/04/19 Range/Units 19:35 19:35 19:35 WBC 12.13 H (4.8-10.8) K/uL RBC 4.69 (4.2-5.4) M/uL Hgb 14.2 (12.0-16.0) g/dL Hct 42.3 (37-47) % MCV 90.2 (80-100) fL MCH 30.3 (25-34) pg MCHC 33.6 (32-36) g/dL RDW Std Deviation 44.4 (36.4-46.3) fL RDW Coeff of Danette 13.5 (11.5-14.5) % Plt Count 238 (130-400) K/uL MPV 9.6 (7.4-10.4) fL Immature Gran % (Auto) 0.2 % Neut % (Auto) 80.3 % Lymph % (Auto) 12.2 % Bennett % (Auto) 6.8 % Eos % (Auto) 0.2 % Baso % (Auto) 0.3 % Neut # (Auto) 9.73 H (1.4-6.5) K/uL Lymph # (Auto) 1.48 (1.2-3.4) K/uL Bennett # (Auto) 0.83 H (0.11-0.59) K/uL Eos # (Auto) 0.03 (0-0.5) K/uL Baso # (Auto) 0.04 (0-0.2) K/uL Immature Gran # (Auto) 0.02 (0.00-0.02) K/uL Sodium 141 (136-145) mmol/L Potassium 3.6 (3.5-5.1) mmol/L Chloride 110 H (98-107) mmol/L Carbon Dioxide 27 (21-32) mmol/L Anion Gap 4.0 (3-11) BUN 17 (7-18) mg/dl Creatinine 1.13 (0.6-1.2) mg/dl Est Cr Clr Drug Dosing 44.9 ml/min Est GFR ( Amer) 57.4 Est GFR (Non-Af Amer) 49.6 BUN/Creatinine Ratio 15.3 (10-20) Glucose 112 H (70-99) mg/dl Calcium 9.2 (8.5-10.1) mg/dl Magnesium 2.2 (1.8-2.4) mg/dl C-Reactive Protein 3.31 H (0-0.29) mg/dl Procalcitonin < 0.05 (0-0.5) ng/ml (1) Dog bite of left lower leg with infection Encounter type: initial encounter Qualified Code(s): S81.852A - Open bite, left lower leg, initial encounter; L08.9 - Local infection of the skin and subcutaneous tissue, unspecified; W54.0XXA - Bitten by dog, initial encounter
[2019-09-04] MEDS: PANTOprazole 40 MG TAB PO SCH (22:13)
[2019-09-04] MEDS: SIMVASTATIN 20 MG TAB PO SCH (22:13)
[2019-09-04] MEDS ORDERED: TRAMADOL HCL 50 MG TABLET PO PRN (23:41)
[2019-09-04] MEDS ORDERED: ASPIRIN 81 MG ECTAB PO STA (23:58)
[2019-09-05 06:12] LABS: Basophils # (auto) 0.03 K/uL (0-0.2); Basophils % (auto) 0.4 %; Eosinophils # (auto) 0.11 K/uL (0-0.5); Eosinophils % (auto) 1.3 %; Hematocrit (blood only) 36.4 % (37-47); Hemoglobin 12.6 g/dL (12.0-16.0); Immature Granulocytes # (auto) 0.02 K/uL (0.00-0.02); Immature Granulocytes % (auto) 0.2 %; Lymphocytes # (auto) 2.05 K/uL (1.2-3.4); Lymphocytes % (auto) 25.2 %; Mean Corpuscular Hemoglobin 31.8 pg (25-34); Mean Corpuscular Hgb Conc 34.6 g/dL (32-36); Mean Corpuscular Volume 91.9 fL (80-100); Mean Platelet Volume 9.3 fL (7.4-10.4); Monocytes # (auto) 0.69 K/uL (0.11-0.59); Monocytes % (auto) 8.5 %; Neutrophils # (auto) 5.25 K/uL (1.4-6.5); Neutrophils % (auto) 64.4 %; Platelet Count 215 K/uL (130-400); RDW Coefficient of Variation 13.5 % (11.5-14.5); RDW Standard Deviation 45.3 fL (36.4-46.3); Red Blood Count 3.96 M/uL (4.2-5.4); White Blood Count 8.15 K/uL (4.8-10.8)
[2019-09-05 06:45] LABS: BUN Creatinine Ratio 13.9 (10-20); Calcium 8.7 mg/dl (8.5-10.1); Creatinine Clr Calc Pharmacy 49.7 ml/min; Est GFR (Non-African American) 56.1; Potassium 3.6 mmol/L (3.5-5.1)
[2019-09-05] MEDS: metroNIDAZOLE 500 MG TAB PO SCH ×3 (08:42→20:30)
[2019-09-05] MEDS: CIPROFLOXACIN / D5W 400 MG/200 ML BAG IV SCH ×2 (08:42→19:30)
[2019-09-05] MEDS: SACCHAROMYCES BOULARDII 250 MG CAP PO SCH (08:42)
[2019-09-05] MEDS ORDERED: HEPARIN SOD 5,000 UNIT/0.5 ML VIAL SQ SCH (09:00)
[2019-09-05] MEDS ORDERED: TRAMADOL HCL 50 MG TABLET PO PRN (16:15)
--- NOTE | 2019-09-05 16:16 | Hospitalist Progress Note ---
Date of Service September 05, 2019 Assessment & Plan (1) Dog bite of left lower leg with infection: Feeling better today. Improving on Cipro and Flagyl today. Erythema into foot likely the result of gravity dependent spread of inflammation naturally as opposed to a worsened infection. Cont abx. Scheduled APAP to take the edge off. (2) Dyslipidemia: simvastatin per home regimen (3) HTN (hypertension): will plan to restart home losartan in am. (4) GERD (gastroesophageal reflux disease): Protonix daily (5) DVT prophylaxis: Lovenox Full code Dispo- to home in am. Rosalinda Dominique [facility] and [facility]ticipated Discharge Date Admission Date: September 04, 2019 Subjective feeling well denies significant pain except when walking on left leg redness spread to lower foot, ?gravity dependent area dog was a new neighbors and had bitten before. public health report opened at urgent care facility tetanus shot given at [facility] pharmacy tolerating PO doing well overall Review of Systems Review of Systems: All systems reviewed & are unremarkable except as noted in Subjective Physical Exam Physical Exam: CONSTITUTIONAL: WNWD, vitals as above, generally well- appearing EYES: pupils are round and equal bilaterally, normal conjunctivae, no scleral icterus ENT: external ear and nose normal, oropharynx clear, MMM RESPIRATORY: clear to auscultation bilaterally, no crackles, rales or wheezes, normal respiratory effort CARDIOVASCULAR: regular rate and rhythm, S1 and 2 heard without murmurs, gallops or rubs, no JVD, no peripheral edema GASTROINTESTINAL: soft, nontender, nondistended MUSCULOSKELETAL: strength 5/5 throughout, head is normocephalic and atraumatic, SKIN: warm and dry, closed non draininng wounds on left ankle with surrounding pinkish erythema that extends down beyond the lateral malleolus NEUROLOGIC: CN 2-12 grossly intact, normal cognition, normal speech, no gross focal deficits. PSYCHIATRIC: alert cooperative and oriented to person, place and time. Results & Data Results & Data ([facility]) Vital Signs (Past 12 Hours) Vital Signs Temp Pulse Resp BP BP Pulse Ox 09/05/19 15:08 37.3 C 59 L 16 147/75 H 94 09/05/19 07:35 37.1 C 59 L 15 119/72 94 Laboratory Results Short CBC 09/04/19 09/05/19 Range/Units 19:35 05:50 WBC 12.13 H 8.15 (4.8-10.8) K/uL Hgb 14.2 12.6 (12.0-16.0) g/dL Hct 42.3 36.4 L (37-47) % Plt Count 238 215 (130-400) K/uL BMP 09/04/19 09/05/19 19:35 05:50 Sodium 141 142 Potassium 3.6 3.6 Chloride 110 H 110 H Carbon Dioxide 27 26 BUN 17 14 Creatinine 1.13 1.02 Glucose 112 H 95 Calcium 9.2 8.7 Medications Administered Current Inpatient Medications Acetaminophen (Tylenol) 1,000 mg PO Q8H EDU Stop: 10/05/19 16:14 Diphenhydramine HCl (Benadryl Capsule) 25 mg PO Q4H PRN PRN Reason: Allergic Reaction Stop: 10/04/19 21:19 Last Admin: 09/05/19 15:23 Dose: 25 mg Documented by: Heparin Sodium (Porcine) (Heparin Sodium (Porcine)) 5,000 units SQ Q12 EDU Stop: 10/05/19 08:59 Last Admin: 09/05/19 08:42 Dose: 5,000 units Documented by: Ciprofloxacin (Cipro / D5w) 400 mg in 200 mls @ 100 mls/hr IV Q12H [facility]; Protocol Stop: 09/12/19 07:59 Last Infusion: 09/05/19 11:33 Dose: Infused Documented by: Metronidazole (Flagyl) 500 mg PO TID EDU Stop: 09/12/19 08:59 Last Admin: 09/05/19 14:23 Dose: 500 mg Documented by: Pantoprazole Sodium (Protonix) 40 mg PO QPM EDU Stop: 10/04/19 21:59 Last Admin: 09/04/19 22:13 Dose: 40 mg Documented by: Polyethylene Glycol (Miralax Powder Packet) 17 gm PO DAILY PRN PRN Reason: Constipation Stop: 10/04/19 19:50 Saccharomyces Boulardii (Florastor) 250 mg PO DAILY EDU Stop: 10/05/19 08:59 Last Admin: 09/05/19 08:42 Dose: 250 mg Documented by: Simvastatin (Zocor) 20 mg PO QPM EDU Stop: 10/04/19 20:59 Last Admin: 09/04/19 22:13 Dose: 20 mg Documented by: Tramadol HCl (Ultram) 25 - 50 mg PO Q4H PRN PRN Reason: Pain Stop: 10/04/19 23:40 Tramadol HCl (Ultram) 50 mg PO Q4H PRN PRN Reason: Severe Pain Stop: 10/05/19 16:14 Vitamin B Complex (Vitamin B Complex) 1 tab PO QPM EDU Stop: 10/05/19 20:59 (1) Dog bite of left lower leg with infection Encounter type: initial encounter Qualified Code(s): S81.852A - Open bite, left lower leg, initial encounter; L08.9 - Local infection of the skin and subcutaneous tissue, unspecified; W54.0XXA - Bitten by dog, initial encounter
[2019-09-05] MEDS: ACETAMINOPHEN 500 MG TAB PO SCH ×2 (16:31→23:41)
[2019-09-05] MEDS: PANTOprazole 40 MG TAB PO SCH (20:31)
[2019-09-05] MEDS: SIMVASTATIN 20 MG TAB PO SCH (20:32)
[2019-09-05] MEDS ORDERED: LOSARTAN POTASSIUM 50 MG TAB PO SCH (21:00)
[2019-09-05] MEDS ORDERED: VITAMIN B COMPLEX TAB PO SCH (21:00)
[2019-09-06] MEDS: metroNIDAZOLE 500 MG TAB PO SCH (08:50)
[2019-09-06] MEDS: SACCHAROMYCES BOULARDII 250 MG CAP PO SCH (08:50)
[2019-09-06] MEDS: CIPROFLOXACIN / D5W 400 MG/200 ML BAG IV SCH (08:51)
[2019-09-06] MEDS ORDERED: ENOXAPARIN INJ 40 MG/0.4 ML SYR SQ SCH (09:00)
[2019-09-06] MEDS: ACETAMINOPHEN 500 MG TAB PO SCH (09:03)
[2019-09-06] MEDS ORDERED: PROMETHAZINE HCL 25 MG TAB PO PRN (09:35)
--- NOTE | 2019-09-06 11:08 | Discharge Summary ---
Date of Service September 06, 2019 Admission HPI Per Admitting Provider Mrs. Daniel is a 68-year-old female with history of dyslipidemia, hypertension, who presents to ED with left lower extremity dog bite infection. Patient states that she was bit by a neighbor's dog yesterday, after that she presented to urgent care center and was advised to come to emergency room because her temperature was 100 Fahrenheit. She was not started on antibiotic at that time however she did receive tetanus shot. She also took old Bactrim that she found at home. She reports neighbor's dog was vaccinated for rabies. She feels that her leg is getting more red and swollen and more painful. She did have some subjective fevers and chills at home, currently she describes chills. Temperature currently in ED 37.8 Celsius. She reports allergies to tetracyclines and penicillin, ED provider discussed with pharmacy, started patient on ciprofloxacin and Flagyl. Erythema was demarcated in the ED as well. White blood count mildly elevated at 12,000, CRP elevated at above 3. Patient remains hemodynamically stable. Admission Exam Per Admitting Provider Physical Exam: Elderly female, sitting up in the bed, in no acute distress Constitutional: WD/WN, vitals as above no acute distress and not ill appearing Eyes: PERRL, conjunctivae normal, anicteric sclerae EOM intact bilaterally ENMT: external ear and nose normal, oropharynx normal Neck: trachea midline Respiratory: normal respiratory effort, lungs clear to auscultation no cough Auscultation: no crackles, no rhonchi and no wheezes Cardiovascular: RRR, no murmur, no edema Chest (Breasts): Chest: normal inspection of chest Gastrointestinal (Abdomen): Inspection/Auscultation: abdomen normal to inspection and normal bowel sounds; abdomen not distended Percussion/Palpation: abdomen soft; abdomen nontender, no guarding and abdomen not rigid Musculoskeletal: Head/Neck/Chest: normocephalic, head atraumatic and neck supple Skin: + lesion (Left ankle lesion, erythema) Neurologic: PERRL, EOMI, accommodation nl, no face palsy, no dysarthria moves all extremities; no focal motor deficits Speech / Cognition: normal speech Motor/Sensory: no tremor Psychiatric: A+Ox3, euthymic affect Speech: normal rate/rhythm/volume of speech Principal Diagnosis Cellulitis of Left ankle 2/2 dog bite Discharge Exam CONSTITUTIONAL: WNWD, vitals as above, generally well-appearing EYES: pupils are round and equal bilaterally, normal conjunctivae, no scleral i cterus ENT: external ear and nose normal, oropharynx clear, MMM RESPIRATORY: clear to auscultation bilaterally, no crackles, rales or wheezes, normal respiratory effort CARDIOVASCULAR: regular rate and rhythm, S1 and 2 heard without murmurs, gallops or rubs, no JVD, no peripheral edema GASTROINTESTINAL: soft, nontender, nondistended MUSCULOSKELETAL: strength 5/5 throughout, head is normocephalic and atraumatic, SKIN: warm and dry, closed non draininng wounds on left ankle with resolved erythema. NEUROLOGIC: CN 2-12 grossly intact, normal cognition, normal speech, no gross focal deficits. PSYCHIATRIC: alert cooperative and oriented to person, place and time. Discharge Data Allergies Allergy/AdvReac Type Severity Reaction Status Date / Time acetaminophen [From Vicodin] Allergy Severe HALLUCINATIONS, Verified 09/04/19 19:53 VOMITING hydrocodone [From Vicodin] Allergy Severe HALLUCINATIONS, Verified 09/04/19 19:53 VOMITING Penicillins Allergy Severe ARI HIVES Verified 09/04/19 19:53 prednisone Allergy Severe TROUBLE Verified 09/04/19 19:53 BREATHING Tetracyclines Allergy Severe ARI HIVES Verified 09/04/19 19:53 STANLEY Inhibitors Allergy Intermediate COUGH--FELT Verified 09/04/19 19:53 LIKE ASTMA ATTACK STARTING Imidazole Alkylating Agents Allergy Intermediate Rash Verified 09/04/19 19:53 latex Allergy Intermediate RASH, Verified 09/04/19 19:53 BLISTERS hydrochlorothiazide Allergy Unknown CAN'T Verified 09/04/19 19:53 [From HydroDiuril] REMEMBER orphenadrine Allergy Unknown CAN'T Verified 09/04/19 19:53 REMEMBER ibuprofen Allergy Hives Verified 09/05/19 05:44 STRONG SCENTS Allergy Severe Wheezing Uncoded 09/04/19 19:53 HAND SANITIZIER Allergy Intermediate CONGESTION Uncoded 09/04/19 19:58 SUNCREENS Allergy Intermediate FACE SWELLS Uncoded 09/04/19 19:53 Consultations 09/04/19 19:43 ED Decision to Admit Stat Hospital Course (1) Dog bite of left lower leg with infection: Admitted to the hospitalist service and placed on Cipro and Flagyl with some extension of erythema the following day. This resolved on day of discharge, however, she had some nausea possibly from the antibiotics. Therefore, she was switched to cipro and clindamycin to complete the course. She was not septic on arrival, however, she did have a temp of 37.9C initially. She remained afebrile and hemodynamically stable throughout the remainder of the hospitalization. WBC count initially was 12K and this resolved to normal (8K). Tetanus shot reported at [facility] prior to admission. Health report was filed, also. Strongly encouraged her to follow-up to ensure no rabies prophylaxis was needed. She verbalized understanding with intent to comply. Total Time Total Time Spent Total Time Spent (In Minutes): 60 Total Time Includes: Examination of the Patient, Discharge Planning, Medication Reconciliation and Communication With Other Providers Discharge Plan Discharge Items Patient Disposition: Home - Self-Care Reason For Visit: CELLULITIS Discharge Diagnosis: Cellulitis of Left ankle 2/2 dog bite Condition on Discharge: Good Activity: Resume your previous activity Non-emergency contact: Primary Care Provider Call non-emergency contact if: you have any medication questions, your symptoms worsen, your pain is not controlled, your pain is worsening and you have a fever Follow-up/Referrals: Aida Dale DO [Primary Care Provider] - 09/09/19 10:45 am Diet: Regular Addtl Attending Provider Instructions: Please take all medications as instructed on discharge list below. You are being give two antibiotics to take for the next week. If you have any issues with the medications, please seek medical phone counselor from your physician for consideration of an alternative agent. A close primary care physician (PCP) follow-up is recommended next week to spot check your wound and ensure you are healing well. It was a pleasure taking care of you! Please call if you have any questions or problems. You can reach a [facility] hospitalist on duty at [facility] 24 hours a day by calling [phone]. Take care of yourself. Rosalinda Dominique DO [facility] Hospitalist Pending Studies at Discharge: No Studies:: wound culture pending at time of discharge. Stand-Alone Forms: My [facility] Applause, Smoking Cessation Medications and DC Order Prescriptions: New clindamycin HCl 150 mg Capsule 300 mg PO TID Qty: 21 RF: 0 promethazine 25 mg Tablet 25 mg PO Q6H PRN (Reason: nausea and vomiting) Qty: 20 RF: 0 ciprofloxacin HCl [Cipro] 500 mg tablet 500 mg PO Q12H Qty: 10 RF: 0 Continued simvastatin 20 mg tablet 20 mg PO QPM RF: 0 mupirocin calcium 2 % cream 1 applic TOPICAL DIRECTED PRN (Reason: Skin Irritation) RF: 0 omeprazole 20 mg capsule,delayed release(DR/EC) 20 mg PO QPM RF: 0 losartan 100 mg tablet 100 mg PO QPM RF: 0 clotrimazole 1 % Cream 1 applic TOPICAL DIRECTED PRN (Reason: NEEDED) RF: 0 glucosamine sulfate [Glucosamine] 500 mg Tablet 500 mg PO QPM RF: 0 vitamin B complex Tablet 1 tab PO QPM RF: 0 cholecalciferol (vitamin D3) [Vitamin D3] 25 mcg (1,000 unit) Capsule 0 mcg PO QPM RF: 0 Probiotic 10 billion cell Capsule 0 cell PO QPM RF: 0 Discharge Orders: Discharge Order (Routine); Ordered 09/06/19 Ordered By: Rosalinda Dominique Admission Data Admit Date/Time: 09/04/19 19:51 Attending Provider: Rosalinda Dominique Admit Provider: Dereje Saha Primary Care Provider: Aida Dale Other Providers: Dereje Saha Other Interventions: Discharge Summary Assessment (RN) Last Done: 09/06/19 14:20 DC Date/Time DO NOT enter until pt leaves facility: 09/06/19 14:54
[2019-09-06] MEDS ORDERED: CLINDAMYCIN HCL 150 MG CAP PO SCH (14:00)
== END 2019-09-06 14:54 | disposition home or self-care (01) | DRG 603 ==
LOC: ED 18:12 → SUATTDRO 19:51 → 3W 19:51